=== PATIENT | female | born 1965 | race Caucasian/White ===

== ENCOUNTER 2019-01-19 19:43 | Emergency (ER) | payer BC ==
[2019-01-19 19:48] VITALS: TEMP 99.4
--- NOTE | 2019-01-19 20:05 | ED ---
General Adult HPI - General Source: patient, RN notes reviewed Mode of arrival: ambulatory Limitations: no limitations <Lan Leavitt - Last Filed: 01/19/19 20:49> <Dakota Chamberlain - Last Filed: 01/20/19 00:02> - General Chief complaint: ENT Stated complaint: Aspiration Time Seen by Provider: 01/19/19 19:45 - History of Present Illness Initial comments: This a 53-year-old female who presents emergency department after having aspirated a pea pot. Patient states she was eating while talking to someone and accidentally aspirated. Patient states she is trying to get out in any way she can and it is still there every time she breathes she can hear it making a noise. Patient denies being short of breath but it continually makes her cough. Patient denies any chest pain. Patient denies any other symptoms at this time. (Lan Leavitt) - Related Data Previous Rx's Medication Instructions Recorded Clindamycin [Cleocin] 450 mg PO Q6H 7 Days #28 capsule 01/19/19 predniSONE 10 mg PO DIRECTED #42 tab 01/19/19 Allergies Allergy/AdvReac Type Severity Reaction Status Date / Time No Known Allergies Allergy Verified 01/19/19 20:12 Review of Systems ROS Other: All systems not noted in ROS Statement are negative. <Lan Leavitt - Last Filed: 01/19/19 20:49> ROS Other: All systems not noted in ROS Statement are negative. <Dakota Chamberlain - Last Filed: 01/20/19 00:02> ROS Statement: Those systems with pertinent positive or pertinent negative responses have been documented in the HPI. Past Medical History Past Medical History: Asthma History of Any Multi-Drug Resistant Organisms: None Reported Past Surgical History: Orthopedic Surgery Additional Past Surgical History / Comment(s): vein striping, finger Past Psychological History: No Psychological Hx Reported Smoking Status: Never smoker Past Alcohol Use History: Occasional Past Drug Use History: None Reported <Lan Leavitt - Last Filed: 01/19/19 20:49> General Exam Limitations: no limitations <Lan Leavitt - Last Filed: 01/19/19 20:49> - General Exam Comments Initial Comments: GENERAL: Patient is well-developed and well-nourished. Patient is nontoxic and well- hydrated and is in mild distress. ENT: Neck is soft and supple. No significant lymphadenopathy is noted. Oropharynx is clear. Moist mucous membranes. Neck has full range of motion without e liciting any pain. EYES: The sclera were anicteric and conjunctiva were pink and moist. Extraocular movements were intact and pupils were equal round and reactive to light. Eyelids were unremarkable. PULMONARY: Unlabored respirations. Good breath sounds bilaterally. Patient has occasional whistling when she breathes. CARDIOVASCULAR: There is a regular rate and rhythm without any murmurs gallops or rubs. SKIN: Skin is clear with no lesions or rashes and otherwise unremarkable. NEUROLOGIC: Patient is alert and oriented x3. Cranial nerves II through XII are grossly intact. Motor and sensory are also intact. Normal speech, volume and content. Symmetrical smile. MUSCULOSKELETAL: Normal extremities with adequate strength and full range of motion. LYMPHATICS: No significant lymphadenopathy is noted PSYCHIATRIC: Normal psychiatric evaluation. (Lan Leavitt) Course Vital Signs 01/19/19 01/19/19 01/19/19 19:44 20:22 21:00 Temperature 99.4 F Pulse Rate 77 72 64 Respiratory 18 18 13 Rate Blood Pressure 129/85 130/82 130/93 O2 Sat by Pulse 97 95 Oximetry Medical Decision Making <Lan Leavitt - Last Filed: 01/19/19 20:49> <Dakota Chamberlain - Last Filed: 01/20/19 00:02> - Medical Decision Making I spoke with Dr. Rock and she agreed to come in and do a bronchoscopy Dr. Lakhani will be taking over the care of this patient at 9 PM (Lan Leavitt) Receive this patient as a sign out pending the bronchoscopy. Patient has been seen and had the procedure and doing well. (Dakota Chamberlain) Disposition <Lan Leavitt - Last Filed: 01/19/19 20:49> Is patient prescribed a controlled substance at d/c from ED?: No <Dakota Chamberlain - Last Filed: 01/20/19 00:02> Clinical Impression: Food impaction of esophagus Disposition: HOME SELF-CARE Condition: Good Instructions (If sedation given, give patient instructions): Food Impaction (ED) Prescriptions: Clindamycin [Cleocin] 450 mg PO Q6H 7 Days #28 capsule predniSONE 10 mg PO DIRECTED #42 tab Referrals: Jenelle Lugo MD [Primary Care Provider] - 1-2 days
[2019-01-19] MEDS ORDERED: GLYCOPYRROLATE 0.2 MG/ML 2 ML VIAL ONE (21:01)
[2019-01-19] MEDS ORDERED: LIDOCAINE 1% INJ 10MG/ML (20 ML MDV) ONE (21:01)
[2019-01-19] MEDS ORDERED: KETAMINE 10 MG/ML 20 ML VIAL ONE (21:01)
[2019-01-19] MEDS ORDERED: MIDAZOLAM 2 MG/2 ML VIAL ONE (21:01)
[2019-01-19] MEDS ORDERED: PROPOFOL 10 MG/ML 20 ML VIAL IV ONE (21:01)
[2019-01-19 21:12] VITALS: BP 130/93; PULSE 64; RESP 13
[2019-01-19] MEDS ORDERED: IV FLUID CONTINUATION 100 ML IV ONE (21:42)
--- NOTE | 2019-01-19 22:03 | P.CNPUL ---
History of Present Illness Consult date: 01/19/19 Reason for consult: other (Aspiration) Chief complaint: Aspiration History of present illness: This is a 53-year-old female who presented to the emergency department stating that she aspirated a pea pod. The patient was apparently talking to her daughter on the phone and was eating. She states she inhaled and aspirated a pea pod. The patient states that she tried to make herself cough and try to get the pea output was not successful. She then went on a short run to try to get the pea dislodged however she had chest tightness and began wheezing. She subsequently presented to the emergency department. The patient does have a history of mild intermittent asthma. She states that she hardly ever uses her inhaler. She says that her last inhaler before she ran out. She is a lifelong never smoker. Review of Systems All systems: negative Past Medical History Past Medical History: Asthma History of Any Multi-Drug Resistant Organisms: None Reported Past Surgical History: Orthopedic Surgery Additional Past Surgical History / Comment(s): vein striping, finger Past Psychological History: No Psychological Hx Reported Smoking Status: Never smoker Past Alcohol Use History: Occasional Past Drug Use History: None Reported Medications and Allergies Home Medications Medication Instructions Recorded Confirmed Type No Known Home Medications 01/19/19 01/19/19 History Allergies Allergy/AdvReac Type Severity Reaction Status Date / Time No Known Allergies Allergy Verified 01/19/19 20:12 Physical Exam Osteopathic Statement: *. No significant issues noted on an osteopathic structural exam other than those noted in the History and Physical/Consult. Vitals: Vital Signs Temp Pulse Resp BP Pulse Ox 01/19/19 21:00 64 13 130/93 01/19/19 20:22 72 18 130/82 95 01/19/19 19:44 99.4 F 77 18 129/85 97 Intake and Output 01/19/19 01/19/19 01/19/19 06:59 14:59 22:59 Other: Weight 58.967 kg Gen.: Patient is alert and oriented 3, no acute distress Cardiovascular: Regular rate and rhythm, S1/S2 Lungs: Right-sided inspiratory and expiratory wheezing with coarse cough Abdomen: Soft nontender nondistended positive bowel sounds Extremities: No edema Assessment and Plan Assessment: Aspiration of foreign body Wheezing with bronchospasm Mild intermittent asthma, acutely exacerbated Lifelong never smoker O2 to maintain saturation greater than equal to 90% Plan for emergent bronchoscopy for foreign body retrieval Would discharge home with antibiotics and short course of steroids Anesthesiology and endoscopy team aware of plan for bronchoscopy Thank you for this consultation we'll continue to follow along
--- NOTE | 2019-01-19 22:07 | P.PCN ---
Date of Procedure: 01/19/19 Preoperative Diagnosis: Aspiration of foreign body Postoperative Diagnosis: Aspiration of foreign body Procedure(s) Performed: Flexible bronchoscopy Surgeon: Twyla Lopez Estimated Blood Loss (ml): 5 Pathology: none sent Condition: stable Disposition: observation Indications for Procedure: Aspiration of foreign body Description of Procedure: A time out was performed to ensure the correct patient and intended procedure. The patient was admitted to the trauma bay and seen by the anesthesiologist and belt repairer. Informed consent was obtained. The fiberoptic bronchoscope was passed through the patient's left nare to the level of the vocal cords. The vocal cords appeared normal with normal movement. The scope was then passed in to the right mainstem bronchus. Bilateral bronchial trees were thoroughly inspected to the sub segmental level and a pea pod was noted in the right lower lobe. Biopsy forcepts was utilized to remove the foreign body. Multiple attempts were made and finally successful. The pea was able to be removed in its entirety. The bilateral bronchial trees were clear. The patient tolerated the procedure well. Post-procedure CXR will be obtained. Patient should follow up in the pulmonary office in 1 week. Patient can be discharged to home in stable condition. Patient should be discharged with short course of antibiotics and steroid taper.
--- NOTE | 2019-01-19 22:54 | XR ---
EXAM: XR Chest, 1 View CLINICAL HISTORY: ITS.REASON XR Reason: aspiration, s/p bronch TECHNIQUE: Frontal view of the chest. COMPARISON: No relevant prior studies available. FINDINGS: Lungs: Streaky densities in the right lower lung. Left lung is clear. Pleural space: Unremarkable. No pneumothorax. Heart: Unremarkable. No cardiomegaly. Mediastinum: Unremarkable. Bones/joints: Unremarkable. IMPRESSION: Findings concerning for right lower lobe infectious or aspiration pneumonia. Follow-up in 6-8 weeks to ensure resolution.
== END 2019-01-19 23:00 | disposition home or self-care (01) ==
LOC: EC 19:43
DX: T18.120A Food in esophagus causing compression of trachea, initial encounter (principal); Y93.89 Activity, other specified
CPT/HCPCS: 71045; 31635; 99284; J2250; J2001; J2704

== ENCOUNTER → 2022-07-25 | Outpatient (CLI) | payer OTHER ==
[2022-07-25 18:43] LABS: Basophils # (A) 0.04 X 10*3/uL (0.00-0.10); Basophils % (A) 0.9 %; Eosinophils % (A) 8.8 %; HGB 13.4 g/dL (12.0-15.0); Immature Grans, Automated 0.2 %; Lymphocytes # (A) 1.36 X 10*3/uL (0.90-5.00); MCH 32.2 pg (27.0-32.0); MCHC 33.5 g/dL (32.0-37.0); MCV 96.2 fL (80.0-97.0); Monocytes # (A) 0.44 X 10*3/uL (0.20-1.00); Monocytes % (A) 9.7 %; NRBC Per 100 WBC 0 /100 WBCS (0.0-0.0); Neutrophils # (A) 2.29 X 10*3/uL (1.80-7.70); Neutrophils % (A) 50.4 %; Platelet Count 312 X 10*3/uL (140-440); RBC 4.16 X 10*6/uL (4.10-5.20); RDW 12.3 % (11.5-14.5); WBC 4.54 X 10*3/uL (4.50-10.00)
== END | disposition home or self-care (01) ==
LOC: LABWHC1 09:45
PROVIDERS: ATTEND Obstetrics & Gynecology
DX: Z01.812 Encounter for preprocedural laboratory examination (principal)
CPT/HCPCS: 36415; 85025; 93005

== ENCOUNTER 2022-08-22 05:52 | Day surgery (SDC) | payer BC, OTHER ==
[2022-08-01 14:13] VITALS: BMI 20.7
--- NOTE | 2022-08-21 15:41 | P.HPOB ---
History of Present Illness H&P Date: 08/21/22 Chief Complaint: GABO II This is a 57 y.o. female, 2, para 2, who presents for colposcopy with LEEP/Colposcopy due to GABO II on colposcopy in the office on 06/19/2022. Her pap was normal with +HR HPV and negative types 16 & 18. Her previous pap in 11/2021 showed the same thing and colposcopy at that time showed LGSIL. She subsequently underwent cryocautery on 12/29/2021. Since colposcopy is still abnormal, will proceed with LEEP/colposcopy. OB Hx: . History of 2 vaginal deliveries. 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 Works in [employer]. Review of Systems Constitutional: Denies chills, Denies fever Eyes: denies blurred vision, denies pain Ears, nose, mouth and throat: Denies headache, Denies sore throat Cardiovascular: Denies chest pain, Denies shortness of breath Respiratory: Denies cough Gastrointestinal: Denies abdominal pain, Denies diarrhea, Denies nausea, Denies vomiting Genitourinary: Denies dysuria, Denies hematuria Menstruation: Reports postmenopausal Musculoskeletal: Denies myalgias Integumentary: Denies pruritus, Denies rash Neurological: Denies numbness, Denies weakness Psychiatric: Reports anxiety, Denies depression Endocrine: Denies fatigue, Denies weight change Past Medical History Past Medical History: Asthma, Hyperlipidemia Additional Past Medical History / Comment(s): abn pap smear History of Any Multi-Drug Resistant Organisms: None Reported Past Surgical History: Orthopedic Surgery Additional Past Surgical History / Comment(s): vein striping, finger Past Anesthesia/Blood Transfusion Reactions: No Reported Reaction Past Psychological History: Anxiety Smoking Status: Never smoker Past Alcohol Use History: None Reported Past Drug Use History: None Reported - Past Family History Mother Family Medical History: No Reported History Brother(s) Family Medical History: Cancer Additional Family Medical History / Comment(s): prostate Medications and Allergies Home Medications Medication Instructions Recorded Confirmed Type Albuterol Inhaler [Ventolin Hfa 1 - 2 puff INHALATION Q6H PRN 08/01/22 08/01/22 History Inhaler] Ascorbic Acid [Vitamin C] 1,000 mg PO DAILY 08/01/22 08/01/22 History Atorvastatin Calcium 10 mg PO DAILY 08/01/22 08/01/22 History Cranberry Fruit Extract [Cranberry] 500 mg PO DAILY 08/01/22 08/01/22 History Cyanocobalamin (Vitamin B-12) 1,000 mcg PO DAILY 08/01/22 08/01/22 History [Vitamin B-12] Fish Oil/Dha/Epa [Fish Oil 1,200 1 each PO DAILY 08/01/22 08/01/22 History mg Fish Oil] Iron 50 mg PO DAILY 08/01/22 08/01/22 History Allergies Allergy/AdvReac Type Severity Reaction Status Date / Time No Known Allergies Allergy Verified 08/01/22 14:04 Exam Osteopathic Statement: *. No significant issues noted on an osteopathic structural exam other than those noted in the History and Physical/Consult. HEENT: within normal limits Heart: regular rate and rhythm Lungs: clear to auscultation bilaterally Abdomen: soft, non-tender Extremities: neg. Daniela's Pelvic: uterus retroverted, non-tender, no adnexal masses or tenderness Assessment and Plan (1) GABO II (cervical intraepithelial neoplasia II) Status: Acute Code(s): N87.1 - MODERATE CERVICAL DYSPLASIA SNOMED Code(s): 959279058 Plan: Proceed with colposcopy with loop electrocautery excision procedure.
[~2022-08-22 05:52] MED LIST: Pre Op ABX Message 1 EACH MISC MISCELLANE ONE
[2022-08-22] MEDS ORDERED: LACTATED RINGERS 1,000 ML IV ONE (06:20)
[2022-08-22] MEDS ORDERED: ONDANSETRON 4 MG/2 ML VIAL IVP ONE ×2 (06:21→07:01)
[2022-08-22] MEDS ORDERED: HYDROmorphone 0.5 MG/0.5 ML SYRINGE IVP PRN (06:21)
[2022-08-22] MEDS ORDERED: LACTATED RINGERS 1,000 ML IV SCH (06:21)
[2022-08-22] MEDS ORDERED: DEXAMETHASONE SOD PHOSPHATE 4 MG/ML 1 ML VIAL IV ONE (06:21)
[2022-08-22] MEDS ORDERED: DEXAMETHASONE SOD PHOSPHATE 4 MG/ML 1 ML VIAL IVP ONE (07:02)
[2022-08-22] MEDS ORDERED: MIDAZOLAM 2 MG/2 ML VIAL IVP ONE (07:02)
[2022-08-22] MEDS ORDERED: fentaNYL (PF) 50 MCG/ML 2 ML AMP ONE (07:10)
[2022-08-22] MEDS ORDERED: LIDOCAINE 2% INJ 20 MG/ML (2 ML VIAL) ONE (07:10)
[2022-08-22] MEDS ORDERED: MIDAZOLAM 2 MG/2 ML VIAL ONE (07:10)
[2022-08-22] MEDS ORDERED: PROPOFOL 10 MG/ML 20 ML VIAL IV ONE (07:10)
[2022-08-22] MEDS ORDERED: FERRIC SUBSULFATE (MONSELS) JAR TOPICAL ONE ×2 (07:13→07:39)
[2022-08-22] MEDS ORDERED: LIDOCAINE 1%-EPI 1:100,000 20 ML VIAL SUBMUCOSAL ONE ×2 (07:13→07:39)
[2022-08-22] MEDS ORDERED: ACETIC ACID 15 DROPS/ML DROPS MISCELLANE ONE ×2 (07:13→07:39)
[2022-08-22] MEDS ORDERED: IODINE/POTASS IOD (LUGOLS) BOTTLE TOPICAL ONE ×2 (07:14→07:39)
[2022-08-22] MEDS ORDERED: BUPIVACAINE (PF) 0.5% 30 ML VIAL MISCELLANE ONE (07:38)
--- NOTE | 2022-08-22 07:50 | P.OP ---
Date of Procedure: 08/22/22 Preoperative Diagnosis: GABO-2 Postoperative Diagnosis: Cervical dysplasia Procedure(s) Performed: Colposcopy with loop electrocautery excision procedure Anesthesia: MYRANDAA Surgeon: Danette Schmidt Estimated Blood Loss (ml): 2 Pathology: other (Ectocervix with the 9 o'clock position marked with a suture in the 3 o'clock position marked with a white suture, separate piece is endocervix) Condition: stable Disposition: floor Indications for Procedure: This is a 57 y.o. female, 2, para 2, who presents for colposcopy with LEEP/Colposcopy due to GABO II on colposcopy in the office on 06/19/2022. Her pap was normal with +HR HPV and negative types 16 & 18. Her previous pap in 11/2021 showed the same thing and colposcopy at that time showed LGSIL. She subsequently underwent cryocautery on 12/29/2021. Since colposcopy is still abnormal, will proceed with LEEP/colposcopy. Operative Findings: A surface contour changes noted at the 7 o'clock position. A small amount of acetowhite and Lugol white area was noted also at the 7 o'clock position. Tra nsition zone is not seen entirely. Description of Procedure: Patient is taken to the operating room where she is placed in the dorsal lithotomy position. Her water is drained with a catheter. Examination is performed under anesthesia. Uterus is sounded be retroverted, with no adnexal masses palpated. Next a coated bivalve speculum was placed in the patient's vagina and attached to suction. Next the colposcopy is performed using a blue light. Cervix is swabbed with 5% acetic acid solution. No abnormalities other than what is described above were noted. Next the cervix is swabbed with the ball solution. The same area at the 7:00 spot appeared Lugol white. Next the cervix was circumferentially injected with a 50-50 mixture of 1% lidocaine with epinephrine and half percent Marcaine. Approximately 7 mL were used injecting with a spinal needle around the cervix. Next the large loop was used to swipe from left to right removing the ectocervix. A second swipe was used to remove the entire 3:00 border. Next a small loop was used to remove the endocervix. 35 W of cutting power was used for all of them. Next the 9 o'clock position on the ectocervix was marked with a white suture and then the 3 o'clock position on the ectocervix was marked with a black suture. The separate piece was unlabeled and noted to be endocervix. Ball-tipped cautery was then used to cauterize the bed left behind. Next Monsel solution was applied to the bed left behind. Area was noted hemostatic. All instruments are removed from the vagina. All sponge and needle counts are correct.
[2022-08-22 07:59] VITALS: TEMP 97
[2022-08-22 08:08] VITALS: RESP 16
[2022-08-22] MEDS ORDERED: KETOROLAC 15 MG/ML 1 ML VIAL IVP ONE (08:30)
[2022-08-22 09:02] VITALS: BP 132/79; PULSE 54
== END 2022-08-22 09:44 | disposition home or self-care (01) ==
LOC: OR 05:52
PROVIDERS: ATTEND Obstetrics & Gynecology
DX: N87.1 Moderate cervical dysplasia (principal); E78.5 Hyperlipidemia, unspecified; J45.909 Unspecified asthma, uncomplicated
CPT/HCPCS: 88307; 57522; J2250; J1100; J2405; J3010; J1885; J2704; J2001